=== PATIENT | male | born 1965 | race Caucasian/White ===

== ENCOUNTER 2017-09-25 08:18 | Day surgery (SDC) | payer BC ==
[~2017-09-25] VITALS: Ht 177.8 cm; Wt 90.0 kg
[2017-09-25 09:20] VITALS: BP 113/80
[2017-09-25] MEDS ORDERED: LACTATED RINGERS 1,000 ML IV SCH (09:21)
[2017-09-25 10:20] LABS: HEMATOCRIT 46.4 % (39.2-51.8); HEMOGLOBIN 15.9 g/dL (13.7-18.0); WHITE BLOOD COUNT 8.5 x10^3/uL (3.4-10)
[2017-09-25] MEDS ORDERED: PROPOFOL 10 MG/ML, 20ML ONE ×5 (10:26→11:28)
[2017-09-25] MEDS ORDERED: LIPA1CAP4 PO (10:27)
[2017-09-25] MEDS ORDERED: AMLO10TA2 PO (10:27)
[2017-09-25] MEDS ORDERED: IRBE300T16 PO (10:27)
[2017-09-25] MEDS ORDERED: CHLO25TA PO (10:27)
[2017-09-25] MEDS ORDERED: TRAZ100T15 PO (10:27)
[2017-09-25] MEDS ORDERED: BUPR150T20 PO (10:27)
[2017-09-25] MEDS ORDERED: ERGO500017 PO (10:27)
[2017-09-25] MEDS ORDERED: FENO200C PO (10:27)
[2017-09-25] MEDS ORDERED: FLUT1DIS IH (10:27)
[2017-09-25] MEDS ORDERED: OXYC1TAB8 PO (10:27)
[2017-09-25] MEDS ORDERED: GABA300C10 PO (10:27)
[2017-09-25] MEDS ORDERED: OMEP-110 PO (10:27)
[2017-09-25] MEDS ORDERED: EPHEDRINE 50 MG/ML, 1ML IVPush PRN (10:30)
[2017-09-25] MEDS ORDERED: MEPERIDINE/PF 25MG/0.5ML IVPush PRN (10:30)
[2017-09-25] MEDS ORDERED: ONDANSETRON 2MG/ML, 2ML IVPush PRN (10:30)
[2017-09-25] MEDS ORDERED: FENTANYL PF 100 MCG/2ML IV PRN (10:30)
[2017-09-25] MEDS ORDERED: OXYcodone 5 MG/5 ML ORAL.SOL UDC PO PRN (10:30)
[2017-09-25] MEDS ORDERED: MIDAZOLAM 1 MG/ML, 2ML IV PRN (10:30)
[2017-09-25] MEDS ORDERED: PROMETHAZINE 25 MG/ML, 1ML IV PRN (10:30)
[2017-09-25] MEDS ORDERED: LABETALOL 5MG/ML, 20ML IV PRN (10:30)
[2017-09-25] MEDS ORDERED: DIAZEPAM 5 MG/ML, 2ML IVPush PRN (10:30)
[2017-09-25] MEDS ORDERED: HYDROmorphone 1 MG/ML, 1ML IV PRN (10:30)
[2017-09-25] MEDS ORDERED: ACETAMINOPHEN 325 MG TABLET PO PRN (10:30)
[2017-09-25] MEDS ORDERED: ALBUTEROL/IPRATROPIUM 2.5MG/0.5MG, 3 ML NPPB PRN (10:30)
[2017-09-25 10:31] LABS: ASPARTATE AMINO TRANSFERASE 12 U/L (15-37); BLOOD UREA NITROGEN 23 mg/dL (7-18)
== END 2017-09-25 13:20 ==
LOC: OUT 08:18
PROVIDERS: ATTEND Internal Medicine Geriatric Medicine
DX: K86.1 Other chronic pancreatitis (principal)
CPT/HCPCS: 36415; 43242; 80053; 82962; 85025; 88173; 88307; J2704; 88172

== ENCOUNTER 2018-04-16 12:39 | Day surgery (SDC) | payer BC ==
[~2018-04-16] VITALS: Ht 175.3 cm; Wt 90.0 kg
[~2018-04-16 12:39] MED LIST: AMLO10TA2 PO; BUPR150T20 PO; CHLO25TA PO; ERGO500017 PO; FENO200C PO; FLUT1DIS IH; GABA300C10 PO; IRBE300T16 PO; LIPA1CAP4 PO; OMEP-110 PO; OXYC1TAB8 PO; TRAZ100T15 PO
[2018-04-16 12:59] VITALS: BP 121/83
[2018-04-16] MEDS ORDERED: LACTATED RINGERS 1,000 ML IV SCH (13:02)
[2018-04-16 14:08] LABS: BASOPHILS # (AUTO) 0.05 x10^3/uL (0-0.1); BASOPHILS % (AUTO) 1 % (0-1); EOSINOPHILS # (AUTO) 0.17 x10^3/uL (0-0.4); EOSINOPHILS % (AUTO) 2 % (1-7); LYMPHOCYTES # (AUTO) 1.94 x10^3/uL (1-3.4); LYMPHOCYTES % (AUTO) 26 % (22-44); MD NO; MEAN CORPUSCULAR HGB CONC 34.2 g/dL (33.2-36.2); MEAN CORPUSCULAR VOLUME 90.8 fL (81-97); MEAN PLATELET VOLUME 7.7 fL (7.4-10.4); MONOCYTES # (AUTO) 0.66 x10^3/uL (0.2-0.8); MONOCYTES % (AUTO) 9 % (2-9); NEUTROPHILS # (AUTO) 4.56 x10^3/uL (1.8-6.8); NEUTROPHILS % (AUTO) 62 % (42-75); PLATELET COUNT 306 x10^3/uL (130-400); RED BLOOD COUNT 4.92 x10^6/uL (4.38-5.82); RED CELL DISTRIBUTION WIDTH 12.8 % (9.4-14.8)
[2018-04-16] MEDS ORDERED: PROPOFOL 10 MG/ML, 20ML ONE ×3 (14:08→14:54)
[2018-04-16 14:20] LABS: ALANINE AMINOTRANSFERASE 36 U/L (12-78); ALBUMIN 4.1 g/dL (3.4-5.0); ANION GAP 7 mmol/L (5-15); CALCIUM 9.1 mg/dL (8.5-10.1); CHLORIDE 110 mmol/L (98-107); CREATININE 0.69 mg/dL (0.7-1.3)
[2018-04-16 14:22] LABS: ALKALINE PHOSPHATASE 53 U/L (45-117); BILIRUBIN,TOTAL 0.3 mg/dL (0.2-1.0); TOTAL PROTEIN 6.9 g/dL (6.4-8.2)
== END 2018-04-16 16:50 | disposition home or self-care (01) ==
LOC: OUT 12:39
PROVIDERS: ATTEND Internal Medicine
DX: K86.1 Other chronic pancreatitis (principal); I10 Essential (primary) hypertension; E11.9 Type 2 diabetes mellitus without complications; E78.5 Hyperlipidemia, unspecified; K21.9 Gastro-esophageal reflux disease without esophagitis; J45.909 Unspecified asthma, uncomplicated; G62.9 Polyneuropathy, unspecified; Z72.89 Other problems related to lifestyle
CPT/HCPCS: 36415; 43242; 80053; 85025; 88307; J2704; J7120